=== PATIENT | female | born 1990 | race Caucasian/White ===

== ENCOUNTER → 2017-04-14 | Outpatient (CLI) | payer OTHER, BC ==
[~2017-04-14] MED LIST: IBUP600 PO; PERI8.6T PO; PREN1TAB30; PREV30CA36 PO
== END ==
LOC: HPND 09:15
PROVIDERS: ATTEND Obstetrics & Gynecology
DX: O30.043 Twin pregnancy, dichorionic/diamniotic, third trimester (principal); O09.813 Supervision of pregnancy resulting from assisted reproductive technology, third trimester; Z3A.29 29 weeks gestation of pregnancy
CPT/HCPCS: 76816

== ENCOUNTER → 2017-05-11 | Outpatient (CLI) | payer OTHER, BC | LOC: HPND 09:23 | PROVIDERS: ATTEND Obstetrics & Gynecology | DX: O40.3XX9 Polyhydramnios, third trimester, other fetus (principal); O30.043 Twin pregnancy, dichorionic/diamniotic, third trimester | CPT/HCPCS: 76816 ==

== ENCOUNTER 2017-06-11 09:32 | Inpatient (IN) | payer OTHER, BC ==
[2017-06-11] VITALS (46 sets, daily range): BP systolic 99–140; BP diastolic 54–92; PULSE 62–153; RESP 16–20; TEMP 97.5–98.2
[2017-06-11] MEDS: LACTATED RINGER'S 1000 ML INJ 1,000 ML IV SCH ×2 (10:10→13:51)
[2017-06-11] MEDS ORDERED: LACTATED RINGER'S 1000 ML INJ 1,000 ML IV PRN (10:10)
--- NOTE | 2017-06-11 10:10 | HHI.HP ---
HPI Chief Complaint Richard with twins Date Seen: Jun 11, 2017 Time Seen: 10:00 Travel History International Travel<30 Days: No Contact w/Intl Traveler<30Days: No Known Affected Area: No History of Present Illness HPI 26-year-old white female G 4 P3 L4 at 38 weeks with twin gestation followed Dr. Doris harris for care presents with irregular contractions cervix is 6- 7 cm 90% -2, heart rate tracings reactive contractions are noted, babies are both vertex by ultrasound now Weeks Gestation: 38 Para: 3 : 4 History Obstetric History Obstetric History She said 4 pregnancies 3 deliveries last delivery was twins so she is a and L4 Social History Alcohol Use: No Tobacco Use: No Substance Abuse: No Allergies-Medications (Allergen,Severity, Reaction): Coded Allergies: No Known Allergies (Unverified , 04/21/15) Home Meds Active Scripts Sennosides-Docusate Sodium (Hilda-Colace 8.6-50 mg) 1 Tab Tab, 2 TAB PO Q12H Y for CONSTIPATION, #20 TAB 0 Refills Prov:Cyndi Corea 04/23/15 Ibuprofen (Motrin 600 Mg Tab) 600 Mg Tab, 600 MG PO Q6H Y for CRAMPING, #30 TAB 0 Refills Prov:Cyndi Corea 04/23/15 Reported Medications Lansoprazole (Prevacid) 30 Mg Capcr, 30 MG PO DAILY, CAP 04/21/15 Vit W/ Ferrous Fumara ( Vitamin 27-0.8 mg) 1 Tab Tab 04/21/15 Review of Systems General / Constitutional: No: Fever, Weight Gain, Chills, Other Eyes: No: Diploplia, Blurred Vision, Visual changes, Pain, Photophobia HENT: No: Headaches, Vertigo, Lightheadedness Cardiovascular: No: Irregular Rhythm, Chest Pain or Discomfort, Palpitations, Tachycardia, Syncope, Varicosities, Edema, Cyanosis Respiratory: No: Cough, Short of Breath, Other Gastrointestinal: Abdominal Pain, No: Nausea, Vomiting, Diarrhea Genitourinary: No: Decreased Urinary Output, Oliguria Musculoskeletal: No: Limited ROM, Weakness, Cramping, Edema, Pain Skin: No Rash, No Itching, No Dryness, No Lumps, No Change in Pigmentation, No Change in Nails, No Alopecia, No Lesions Neurologic: No: Weakness, Dizziness, Syncope, Focal Abnormalities, Coordination Problem, Headache, Slurred Speech, Seizures Psychiatric: No: Depression, Suicidal Ideations, Homicidal Ideation Endocrine: No: Heat Intolerance, Cold Intolerance, Polydipsia, Polyuria, Other Physical Exam Narrative GENERAL: Well-nourished, well-developed patient. SKIN: Warm and dry. HEAD: Normocephalic and atraumatic. EYES: No scleral icterus. No injection or drainage. ENT: No nasal drainage noted. Mucous membranes pink. Airway patent. NECK: Supple, trachea midline. No JVD. CARDIOVASCULAR: Regular rate and rhythm without murmurs, gallops, or rubs. RESPIRATORY: Breath sounds equal bilaterally. No accessory muscle use. BREASTS: Bilateral exam showed no masses , no retractions, no nipple discharge. ABDOMEN/GI: Abdomen soft, non-tender, bowel sounds present, no rebound, no guarding Gravid to [-40] weeks size Fundal Height: [40-] GENITOURINARY: External Genitalia: intact and normal in appearance BUS glands: [-] Cervix: [-] Dilatation: [6-] Effacement: [-90] Station: [-2] Presentation: [vtx/vtx-] Membranes: [intact] Uterine Contractions: [-q 3 min] FHT's: Category: [1-] Baseline: [-133 /135] Reactive: [-yes] Variability: [mod-] Decels: [-0] EXTREMITIES: No cyanosis or edema. BACK: Nontender without obvious deformity. No CVA tenderness. NEUROLOGICAL: Awake and alert. Motor and sensory grossly within normal limits. Five out of 5 muscle strength in all muscle groups. Normal speech. Caprini VTE Risk Assessment Caprini VTE Risk Assessment: No/Low Risk (score <= 1) Caprini Risk Assessment Model Point Value = 1 Point Value = 2 Point Value = 3 Point Value = 5 Age 41-60 Minor surgery BMI > 25 kg/m2 Swollen legs Varicose veins or History of unexplained or recurrent spontaneous Oral contraceptives or hormone replacement Sepsis (< 1 month) Serious lung disease, including pneumonia (< 1 month) Abnormal pulmonary function Acute myocardial infarction Congestive heart failure (< 1 month) History of inflammatory bowel disease Medical patient at bed rest Age 61-74 Arthroscopic surgery Major open surgery (> 45 min) Laparoscopic surgery (> 45 min) Malignancy Confined to bed (> 72 hours) Immobilizing plaster cast Central venous access Age >= 75 History of VTE Family history of VTE Factor V Leiden Prothrombin [id number] Lupus anticoagulant Anticardiolipin antibodies Elevated serum homocysteine Heparin-induced thrombocytopenia Other congenital or acquired thrombophilia Stroke (< 1 month) Elective arthroplasty Hip, pelvis, or leg fracture Acute spinal cord injury (< 1 month) Prophylaxis Regimen Total Risk Factor Score Risk Level Prophylaxis Regimen 0-1 Low Early ambulation 2 Moderate Order ONE of the following: *Sequential Compression Device (SCD) *Heparin 5000 units SQ BID 3-4 Higher Order ONE of the following medications: *Heparin 5000 units SQ TID *Enoxaparin/Lovenox 40 mg SQ daily (WT < 150 kg, CrCl > 30 mL/min) *Enoxaparin/Lovenox 30 mg SQ daily (WT < 150 kg, CrCl > 10-29 mL/min) *Enoxaparin/Lovenox 30 mg SQ BID (WT < 150 kg, CrCl > 30 mL/min) AND/OR *Sequential Compression Device (SCD) 5 or more Highest Order ONE of the following medications: *Heparin 5000 units SQ TID (Preferred with Epidurals) *Enoxaparin/Lovenox 40 mg SQ daily (WT < 150 kg, CrCl > 30 mL/min) *Enoxaparin/Lovenox 30 mg SQ daily (WT < 150 kg, CrCl > 10-29 mL/min) *Enoxaparin/Lovenox 30 mg SQ BID (WT < 150 kg, CrCl > 30 mL/min) AND *Sequential Compression Device (SCD) Data Data Orders Orders Ob (2e) Additional Admit Info (06/11/17 09:57) Assessment/Plan Assessment and Plan This is 26-year-old white female at 38 weeks with twin gestation in active labor 96-7 cm, contractions are regular, heart rate tracings are reactive, cervix is 6-7 cm of dilated this time. Ultrasound confirms babies are vertex vertex. Dr. Solis informed and aware on her way to the hospital. Gavin Barron II, MD Jun 11, 2017 10:10
[2017-06-11] MEDS ORDERED: LIDOCAINE HCL 1% 50 ML VIAL I-DERMAL PRN (10:15)
[2017-06-11] MEDS ORDERED: LIDOCAINE HCL 1% 50 ML VIAL INFIL PRN (10:15)
[2017-06-11] MEDS ORDERED: CITRIC ACID-SODIUM CITRATE LIQ 30 ML UDC PO SCH (10:15)
[2017-06-11] MEDS ORDERED: MINERAL OIL 10 ML VIAL TOPICAL PRN (10:15)
[2017-06-11] MEDS ORDERED: SODIUM CHLORID 0.9% 500 ML INJ 500 ML IV PRN (10:15)
[2017-06-11] MEDS ORDERED: OXYTOCIN 30 UNITS-500ML PREMIX 500 ML IV ONE (10:15)
[2017-06-11 10:24] LABS: AUTOMATED NEUTROPHIL # 11.1 TH/MM3 (1.8-7.7); BASOPHIL # 0.1 TH/MM3 (0-0.2); BASOPHIL % 0.4 % (0.0-2.0); EOSINOPHIL % 0.3 % (0.0-4.0); HEMATOCRIT 33.1 % (35.0-46.0); HEMO FLAGS DIFF FINAL; LYMPH % 11.5 % (9.0-44.0); LYMPHOCYTE # 1.5 TH/MM3 (1.0-4.8); MEAN CELL VOLUME 78.4 FL (80.0-100.0); MEAN CORPUSCULAR HEMOGLOBIN 24.8 PG (27.0-34.0); MEAN CORPUSCULAR HGB CONC 31.7 % (32.0-36.0); MONO % 4.9 % (0.0-8.0); NEUT % 82.9 % (16.0-70.0); PLATELET COUNT 171 TH/MM3 (150-450); RED BLOOD COUNT 4.22 MIL/MM3 (4.00-5.30); RED CELL DISTRIBUTION WIDTH 16.6 % (11.6-17.2); WHITE BLOOD COUNT 13.4 TH/MM3 (4.0-11.0)
[2017-06-11] MEDS ORDERED: SODIUM CHLOR 0.9% 1000 ML INJ 1,000 ML IV PRN (10:30)
[2017-06-11] MEDS ORDERED: ePHEDrine/NS 25 MG/5 ML SYR ONE (10:37)
[2017-06-11] MEDS ORDERED: fentaNYL 2MCG-BUPIV 0.125% INJ 100 ML ONE (10:37)
[2017-06-11 12:17] LABS: MUCUS URINE MANY /lpf (OCC); SQUAMOUS EPITHELIAL CELL URINE 23 /hpf (0-5)
[2017-06-11 12:34] LABS: BLOOD, URINE LARGE (NEG); GLUCOSE,URINE NEG (NEG); KETONE, URINE TRACE mg/dL (NEG); NITRITE,URINE NEG (NEG); PH, URINE 7.5 (5.0-8.5); URINE COLOR YELLOW (YELLW/STRAW)
[2017-06-11 12:38] LABS: BACTERIA, URINE FEW /hpf; COMMENT (UR) CATH-CULTURE IND; CULTURE IF INDICATED CATH CULTURE IND
[2017-06-11] MEDS ORDERED: OXYTOCIN 10 UNIT/ML AMP ONE (12:39)
[2017-06-11 13:05] LABS: BLOOD GAS BASE EXCESS -1.9 mmol/L (-2-2); BLOOD GAS O2 HGB SATURATION 61 % (90-100); CORD BLOOD GAS HCO3 23 mmol/L (21-29); CORD BLOOD GAS PCO2 40 mmHG (34-78); CORD BLOOD GAS PH 7.37 (7.14-7.42); CORD BLOOD GAS PO2 28 mmHG (3.0-40.0); DRAW SITE CORD BLOOD
[2017-06-11 13:06] LABS: STAT NO
[2017-06-11 13:08] LABS: BLOOD GAS BASE EXCESS -2.4 mmol/L (-2-2); BLOOD GAS O2 HGB SATURATION 45 % (90-100); CORD BLOOD GAS HCO3 23 mmol/L (21-29); CORD BLOOD GAS PCO2 44 mmHG (34-78); CORD BLOOD GAS PH 7.33 (7.14-7.42); CORD BLOOD GAS PO2 22 mmHG (3.0-40.0); DRAW SITE CORD BLOOD; STAT NO
[2017-06-11] MEDS ORDERED: OXYTOCIN 30 UNITS-500ML PREMIX 500 ML IV SCH (13:15)
[2017-06-11] MEDS ORDERED: ONDANSETRON ODT 4 MG TAB PO PRN (13:15)
[2017-06-11] MEDS ORDERED: ZOLPIDEM TARTRATE 5 MG TAB PO PRN (13:15)
[2017-06-11] MEDS ORDERED: ACETAMINOPHEN 325 MG TAB PO PRN (13:15)
[2017-06-11] MEDS ORDERED: BENZOCAINE 20% TOPICAL SPRAY 60 ML CAN TOPICAL PRN (13:15)
[2017-06-11] MEDS ORDERED: DOCUSATE SODIUM 50 MG/SENNA 8.6 MG TAB PO PRN (13:15)
[2017-06-11] MEDS ORDERED: SODIUM CHLORIDE 0.9% FLUSH 10 ML FLUSH IV FLUSH SCH (13:15)
[2017-06-11] MEDS ORDERED: WITCH HAZEL 50%/GLYCERIN 12.5% 40 PAD JAR TOPICAL PRN (13:15)
[2017-06-11] MEDS ORDERED: SODIUM CHLORIDE 0.9% FLUSH 10 ML FLUSH IV FLUSH PRN (13:15)
--- NOTE | 2017-06-11 13:16 | PD.OB.DELI ---
Weeks gestation: 38 Gest age assessed date: Jun 11, 2017 Gest age assessed time: 11:00 Pt started active labor?: Yes Medical induction of labor?: No Artificial rupture of membrane: Yes Artificial ROM date: Jun 11, 2017 Artifical ROM time: 11:05 (1 (B 12L:34)) Anesthesia: Epidural Episiotomy: None Vaginal Delivery: Normal, Spontaneous (x2) Presentation: Vertex (x2) Nuchal Cord: None (body cord x 2 delivered thru) Delayed cord clamping (45 sec): Yes (twin A (female); no for twin B ( bradycardia, needed immediate assessment) : Male, Female, Multiple (A: female, B: male) Delivery date: Jun 11, 2017 Delivery time: 12:32 (B: 1246) One Minute : 8 (B), 9 (A) Five Minute : 9 (A & B) Weight: A: 2380g, B: 3215g Placenta: Spontaneous delivery (x2), Intact, 3 vessel cord (x2) Laceration: No lacerations Estimated blood loss: 300 mL Additional Information successful x 2 of healthy male dichorionic diamniotic female & male twin infants; was surrogacy; parents of infants were present just outside of operating room to witness x 2; infants nursery status, to nursery with parents; surrogate parents to separate room Michelle Solis MD Jun 11, 2017 13:16
[2017-06-11] MEDS ORDERED: PERC5TAB12 PO (13:29)
[2017-06-11] MEDS ORDERED: IBUP1TAB7 PO (13:29)
[2017-06-11] MEDS ORDERED: oxyCODONE/ACETAMINOPHEN 5 MG/325 MG TAB PO PRN (13:30)
--- NOTE | 2017-06-11 13:30 | HHI.DCPOC ---
Discharge Care Plan Diagnosis: (1) (normal spontaneous vaginal delivery) Your Health Problems Are: Vaginal delivery Report Symptoms to Your Doctor -Temperature above 100.5 degrees -Redness, of incision or excessive or foul smelling drainage -Unusual pain or calf pain -Increased vaginal bleeding -Painful or difficulty urinating -Feelings of extreme sadness or anxiety after 2 weeks Goals to Promote Your Health * To prevent worsening of your condition and complications * To maintain your health at the optimal level Directions to Meet Your Goals Take your medications as prescribed Follow your dietary instruction Follow activity as directed Ensure plenty of rest for recovery Drink fluids for hydration Keep your appointments as scheduled Take your immunizations and boosters as scheduled If your symptoms worsen call your PCP, if no PCP go to Urgent Care Center or Emergency Room Smoking is Dangerous to Your Health. Avoid second hand smoke Call the 24-hour crisis hotline for domestic abuse at Michelle Solis MD Jun 11, 2017 13:30
[2017-06-11] MEDS: IBUPROFEN 800 MG TAB PO PRN ×2 (13:47→22:43)
[2017-06-11] MEDS: ALUMINUM/MAGNESIUM/SIMETH 30 ML CUP PO PRN ×2 (15:53→21:06)
[2017-06-11] MEDS ORDERED: DIPHTH/TETANUS/ACEL PERTUSSIS (BOOSTER) 0.5 ML VIAL/PFS IM ONE (16:00)
[2017-06-11] MEDS ORDERED: MEASLES, MUMPS, RUBELLA VACCINE 0.5 ML VIAL SQ ONE (16:00)
[2017-06-11] MEDS: oxyCODONE/ACETAMINOPHEN 5 MG/325 MG TAB PO PRN (17:40)
[2017-06-12] MEDS: IBUPROFEN 800 MG TAB PO PRN (07:08)
[2017-06-12] MEDS: oxyCODONE/ACETAMINOPHEN 5 MG/325 MG TAB PO PRN (07:08)
--- NOTE | 2017-06-12 08:02 | HHI.OB ---
Subjective Post Day: 1 Remarks s/p of full term twins, was surrogate Objective Vitals/I&O Vital Signs Date Time Temp Pulse Resp B/P (MAP) Pulse Ox O2 Delivery O2 Flow Rate FiO2 06/11/17 20:30 110/71 (84) 06/11/17 20:30 98.2 81 18 06/11/17 15:50 97.5 62 18 125/71 (89) 06/11/17 14:30 67 118/75 (89) 06/11/17 14:15 73 116/69 (85) 06/11/17 14:05 16 06/11/17 14:00 67 117/68 (84) 06/11/17 13:50 18 06/11/17 13:50 18 06/11/17 13:45 64 122/73 (89) 06/11/17 13:35 97.7 18 06/11/17 13:30 63 120/64 (82) 06/11/17 13:20 16 06/11/17 13:16 71 115/70 (85) 06/11/17 12:15 90 06/11/17 12:15 100 124/77 (93) 06/11/17 12:10 78 06/11/17 12:05 85 06/11/17 12:02 97.7 06/11/17 12:00 89 113/75 (88) 06/11/17 12:00 102 06/11/17 11:55 89 06/11/17 11:50 77 06/11/17 11:46 91 99/68 (78) 06/11/17 11:45 99 06/11/17 11:40 113 06/11/17 11:40 89 114/75 (88) 06/11/17 11:35 85 113/68 (83) 06/11/17 11:35 75 06/11/17 11:30 92 06/11/17 11:30 95 111/54 (73) 06/11/17 11:27 77 114/77 (89) 06/11/17 11:26 77 116/69 (85) 06/11/17 11:25 86 06/11/17 11:20 90 06/11/17 11:15 105 06/11/17 11:15 90 120/80 (93) 06/11/17 11:10 104 114/72 (86) 06/11/17 11:10 98 06/11/17 11:05 99 06/11/17 11:05 106 122/80 (94) 06/11/17 11:00 88 06/11/17 11:00 88 124/67 (86) 06/11/17 10:55 88 124/82 (96) 06/11/17 10:52 91 124/69 (87) 06/11/17 10:50 105 06/11/17 10:45 107 06/11/17 10:43 107 134/92 (106) 06/11/17 10:40 102 06/11/17 10:35 91 06/11/17 10:30 90 06/11/17 10:25 94 06/11/17 10:20 96 06/11/17 10:12 106 140/82 (101) 06/11/17 10:00 20 06/11/17 10:00 116 06/11/17 09:55 131 06/11/17 09:50 153 126/73 (90) Objective Remarks GENERAL: Well-nourished, well-developed patient. CARDIOVASCULAR: Regular rate and rhythm without murmurs, gallops, or rubs. RESPIRATORY: Breath sounds equal bilaterally. No accessory muscle use. ABDOMEN/GI: Abdomen soft, non-tender. Fundus: Firm, non-tender at umbilicus. GENITOURINARY: Light bleeding. EXTREMITIES: No cyanosis or edema, non-tender, without signs of DVT. Medications and IVs Current Medications Medications (Trade) Dose Ordered Sig/Slava Route Start Time Stop Time Status Last Admin (NS Flush) 2 ml BID IV FLUSH 06/11/17 13:15 (NS Flush) 2 ml UNSCH PRN IV FLUSH 06/11/17 13:15 (Tylenol) 650 mg Q4H PRN PO 06/11/17 13:15 (Motrin) 800 mg Q8H PRN PO 06/11/17 13:15 06/12/17 07:08 (Americaine 20% Top Spr) 1 spray Q4H PRN TOPICAL 06/11/17 13:15 (Tucks Pads) 1 applic QID PRN TOPICAL 06/11/17 13:15 (Hilda-Colace) 2 tab Q12H PRN PO 06/11/17 13:15 06/11/17 15:53 (Ambien) 5 mg HS PRN PO 06/11/17 13:15 (Mag-Al Plus Susp Liq) 15 ml Q8H PRN PO 06/11/17 13:15 06/11/17 21:06 (Zofran Odt) 4 mg Q6H PRN PO 06/11/17 13:15 (Percocet 5-325 Mg) 1 tab Q4H PRN PO 06/11/17 13:30 06/12/17 07:08 (Percocet 5-325 Mg) 2 tab Q4H PRN PO 06/11/17 13:30 06/11/17 22:44 Assessment/Plan Problem List: (1) (normal spontaneous vaginal delivery) ICD Codes: O80 - (normal spontaneous vaginal delivery) Status: Acute (2) Surrogate ICD Codes: Z33.3 - state, gestational carrier (3) Multiple gestation ICD Codes: O30.90 - Multiple gestation Status: Acute Qualifiers: Qualified Codes: O30.043 - Twin , dichorionic/diamniotic, third trimester Assessment and Plan PPD#1 s/p of full term twin gestation, surrogate doing great meeting all d/c criteria discharge to home today office f/u 6 wks Discharge Planning today Michelle Solis MD Jun 12, 2017 08:02
== END 2017-06-12 10:13 | disposition home or self-care (01) | DRG 775 ==
LOC: HOBED 09:32 → H2EB 10:01 → H1EA 14:45
PROVIDERS: ADMIT Obstetrics & Gynecology; ATTEND Obstetrics & Gynecology
PROC: 10E0XZZ Delivery of Products of Conception, External Approach (ICD-10-PCS; principal; 2017-06-11)
PROC: 3E0R3BZ Introduction of Anesthetic Agent into Spinal Canal, Percutaneous Approach (ICD-10-PCS; 2017-06-11)
PROC: 00HU33Z Insertion of Infusion Device into Spinal Canal, Percutaneous Approach (ICD-10-PCS; 2017-06-11)
DX: O30.043 Twin pregnancy, dichorionic/diamniotic, third trimester (principal); Z37.2 Twins, both liveborn; Z3A.38 38 weeks gestation of pregnancy; O75.5 Delayed delivery after artificial rupture of membranes; O76 Abnormality in fetal heart rate and rhythm complicating labor and delivery
CPT/HCPCS: 76815; 76818; 80307; 81001; 82805; 85025; 86900; 86901; 87086; 88307; J2590; J7120